=== PATIENT | male | born 1960 | race Caucasian/White ===

== ENCOUNTER → 2024-08-23 | Outpatient (CLI) | payer OTHER ==
[2024-08-23 15:57] VITALS: BP 163/79; PULSE 88; RESP 16; TEMP 97.8
--- NOTE | 2024-08-23 16:28 | P.SLEEP ---
History of Present Illness DATE: 08/23/2024 CONSULTATION/NEW PATIENT EVALUATION HISTORY OF PRESENT ILLNESS/SLEEP-WAKE EVALUATION: 63-year-old gentleman had been evaluated in the sleep center for possible obstructive sleep apnea hypopnea syndrome. Patient has history of obstructive sleep apnea for about 10 years. Results of previous sleep studies are not available, study was done in [place]. Patient continued to use his CPAP equipment every night. CPAP unit is 10-year-old. SLEEP SCHEDULE: Usually sleep schedule from midnight until 9 AM 7 days a week. FALLING ASLEEP: Sometimes patient has difficulties with falling asleep. DURING SLEEP: No snoring with CPAP, but patient still wakes up from sleep up to 7 times. No history of hypnogogical hallucinations, sleep paralysis, or cataplexy. DURING THE DAY/WAKE STATE: In the morning patient wake up tired, falling asleep during the day. Jay sleepiness scale is 8. Patient takes 1 nap at afte rnoon time. PAST MEDICAL HISTORY: Hypertension, hyperlipidemia, history of cardiac arrhythmia. PAST SURGICAL HISTORY: Prostatectomy for cancer, treatment for sports injuries of the nose, right arm, left femur. MEDICATIONS: Atorvastatin 40 mg once a day, escitalopram 10 mg once a day, atenolol 25 mg once a day, Eliquis 5 mg twice a day, Symbicort, duloxetine 40 mg once a day. SOCIAL HISTORY: Please see below. FAMILY HISTORY: Please see below. REVIEW OF SYSTEMS: Multiple awakenings from sleep on treatment with CPAP. No fevers. No double vision. No recent chest pain. No shortness of breath. No abdominal pain. No bleeding episodes. No blood in urine. No seizure episodes. PHYSICAL EXAMINATION: GENERAL: A pleasant patient without any distress. VITAL SIGNS: Please see below, weight 274 pounds, BMI 36.4. HEENT: PERRLA, EOMI. Evaluation of oropharynx showed tongue protrudes midline, low position of soft palate Mallampati 3. NECK: Supple. No JVD. Thyroid is not palpable. 19 inches in circumference. LUNGS: Clear to percussion and to auscultation. Good air exchange. No wheezing or rhonchi. HEART: S1, S2 regular. No murmurs, gallops or rubs. ABDOMEN: Soft and nontender. Bowel sounds are present. No organomegaly appreciated. EXTREMITIES: No clubbing or cyanosis. [employer]: Awake, alert, and oriented x3. Cranial nerves 2 to 7 intact. There is no fasciculation or atrophy noted. No focal deficits observed. ASSESSMENT: 1. Multiple awakenings from sleep, low position of soft palate Mallampati 3, wide neck 19 inches in circumference, history of obstructive sleep apnea. Obst ructive sleep apnea hypopnea syndrome. 2. Obesity, BMI 36.4. 3. Hypertension. 4. History of cardiac arrhythmia. 5 hyperlipidemia. 6 . Status post prostatectomy for cancer. 7. Status post surgical treatment for sports injuries of the nose, right arm, left femur. PLAN: 1. Polysomnography for evaluation of patient's breathing during sleep. 2. Following plan after reading sleep study. 3. Preferable position during sleep on the side. 4. No driving if patient feels any sleepiness. Patient is aware of civil and criminal liability for unsafe driving. 5. Sleep hygiene with regular sleep time for at least 7.5-8 hours. 6. Watching and losing weight. Thank you very much for referring this patient for consultation. Sincerely, Celio Benavidez MD, PhD, FAASM. Diplomat of [place] [employer], Sleep Medicine Board by [place] [employer] [place] [employer] Business Office Associate of [facility] [place] cc: Deejay Nina MD Past Medical History Past Medical History: Asthma, Hypertension History of Any Multi-Drug Resistant Organisms: None Reported Past Surgical History: Prostate Surgery Additional Past Surgical History / Comment(s): Prostate Removed, Rhinoscopy, Septum Past Anesthesia/Blood Transfusion Reactions: No Reported Reaction Past Psychological History: Depression Smoking Status: Never smoker Past Alcohol Use History: Heavy Additional Past Alcohol Use History / Comment(s): stopped drinking February 2024 Past Drug Use History: None Reported - Past Family History Mother Family Medical History: CVA/TIA, Hypertension, Osteoarthritis (OA) Father Family Medical History: Coronary Artery Disease (CAD) Additional Family Medical History / Comment(s): snoring Physical Exam Vitals: Vital Signs Temp Pulse Resp BP Pulse Ox 08/23/24 15:55 97.8 F 88 16 163/79 95 Intake and Output 08/23/24 08/23/24 08/23/24 06:59 14:59 22:59 Other: Weight 128.82 kg Sleep Note - Sleep Data ESS Total: 8 - Sleep Note Sleep Note: Temperature: 97.8 F Pulse Rate: 88 Respiratory Rate: 16 Blood Pressure: 163/79 SpO2: 95 Height: 6 ft 2 in Weight: 128.82 kg BMI: Neck Circumference: 19
== END ==
LOC: 3 N SLEEP 15:14
PROVIDERS: ATTEND Internal Medicine
DX: G47.33 Obstructive sleep apnea (adult) (pediatric) (principal); E66.01 Morbid (severe) obesity due to excess calories; E78.5 Hyperlipidemia, unspecified; Z85.46 Personal history of malignant neoplasm of prostate; Z86.79 Personal history of other diseases of the circulatory system; Z98.890 Other specified postprocedural states; Z68.36 Body mass index [BMI] 36.0-36.9, adult
CPT/HCPCS: 99202